=== PATIENT | female | born 1950 | race Caucasian/White ===

== ENCOUNTER → 2017-01-14 | Outpatient (CLI) | payer MEDICARE, BC ==
[~2017-01-14] MED LIST: ARMO60TA PO; THYR15 PO
[2017-01-14 14:00] LABS: AUTOMATED NEUTROPHIL # 3.6 TH/MM3 (1.8-7.7); BASOPHIL % 0.6 % (0.0-2.0); EOSINOPHIL % 0.6 % (0.0-4.0); HEMATOCRIT 40.6 % (35.0-46.0); HEMO FLAGS DIFF FINAL; LYMPH % 32.1 % (9.0-44.0); LYMPHOCYTE # 1.9 TH/MM3 (1.0-4.8); MEAN CELL VOLUME 92.4 FL (80.0-100.0); MEAN CORPUSCULAR HEMOGLOBIN 31.7 PG (27.0-34.0); MEAN CORPUSCULAR HGB CONC 34.3 % (32.0-36.0); MONO % 6.5 % (0.0-8.0); NEUT % 60.2 % (16.0-70.0); PLATELET COUNT 265 TH/MM3 (150-450); RED BLOOD COUNT 4.39 MIL/MM3 (4.00-5.30); RED CELL DISTRIBUTION WIDTH 14.3 % (11.6-17.2); WHITE BLOOD COUNT 5.9 TH/MM3 (4.0-11.0)
[2017-01-14 14:04] LABS: BLOOD, URINE NEG (NEG); COMMENT (UR) CULT NOT INDICATED; CULTURE IF INDICATED CULT NOT INDICATED; GLUCOSE,URINE NEG (NEG); KETONE, URINE NEG (NEG); MUCUS URINE FEW /lpf (OCC); NITRITE,URINE NEG (NEG); PH, URINE 7.5 (5.0-8.5); RENAL EPITHELIAL CELLS <1 /hpf; SQUAMOUS EPITHELIAL CELL URINE <1 /hpf (0-5); TRANSITIONAL EPI CELLS, URINE 1 /hpf; URINE COLOR LIGHT-YELLOW (YELLW/STRAW)
--- NOTE | 2017-01-15 11:48 | EKG ---
Date Performed: 01/14/2017 Time Performed: 13:36:47 PTAGE: 66 years EKG: SINUS BRADYCARDIA BORDERLINE ECG NO PREVIOUS TRACING DOCTOR: Kelby Alvarez Interpretating Date/Time 01/15/2017 11:42:37
== END ==
LOC: CPRE 13:06
PROVIDERS: ATTEND Obstetrics & Gynecology
DX: Z01.810 Encounter for preprocedural cardiovascular examination (principal); Z01.812 Encounter for preprocedural laboratory examination; N83.291 Other ovarian cyst, right side; N83.292 Other ovarian cyst, left side; N81.10 Cystocele, unspecified; N81.6 Rectocele; R00.1 Bradycardia, unspecified
CPT/HCPCS: 36415; 81001; 85025; 93005

== ENCOUNTER 2017-01-16 12:34 | Observation (INO) | payer MEDICARE, BC ==
--- NOTE | 2017-01-15 21:48 | MH ---
cc: GIOVANNI KLEIN DATE OF ADMISSION 01/16/2017 ADMISSION DIAGNOSIS Cystocele, rectocele with right ovarian cyst and left ovarian cyst. HISTORY OF PRESENT ILLNESS The patient is a 66-year-old white female para 1-0-0-1 with history of increasing prolapsed vagina over the last five years with previous diagnosis rectocele. Bowel function and bladder function are normal, but has some pelvic heaviness. Exam on 01/04/2017 revealed a large cystocele, rectocele and fair cervical support. Pelvic ultrasound on 01/08/2017 showed bilateral simple cysts, normal size uterus, endometrium 2 mm. Pap smear was normal. She is now admitted for surgical treatment. PAST MEDICAL HISTORY/PAST SURGICAL HISTORY 1. In 2001 she had a left breast biopsy benign 2. 2002 appendectomy. MEDICATIONS 1. Thyroid 2. Vitamins. ALLERGIES PENICILLIN TRANSFUSIONS None. OBSTETRICAL HISTORY One vaginal delivery. SOCIAL HISTORY Retired, 33 years. Alcohol, tobacco and drugs are none. FAMILY HISTORY Contributory for mother having prolapse as well. PHYSICAL EXAMINATION GENERAL: A well-nourished well-developed white female. VITAL SIGNS: Stable. HEENT: Exam is normal. CHEST: Clear HEART: Regular rate BREASTS: Symmetrical ABDOMEN: Benign. PELVIC: Exam shows a third-degree cystocele, rectocele, cervical support appears good. Normal size, shape. Adnexal nonpalpable. ASSESSMENT As above. PLAN She is now admitted for examination under anesthesia. If the cervical support in good, we will perform LASH BSO and anterior-posterior repair. if cervical support is poor, we will do LAVH BSO, AP repair. While in the office, I explained the procedures, the risks, benefits and complications. The patient would like to proceed. I discussed postop limitation, possible recurrent prolapse. The patient would like to proceed. MD ODALIS Kapadia/ /9:17 PM /9:36 PM
[~2017-01-16] VITALS: Ht 180.3 cm; Wt 64.7 kg
[~2017-01-16 12:34] MED LIST changes: -ARMO60TA PO; +KETOROLAC TROMETHAMINE 60 MG/2 ML (IM) VIAL IM ONE; +NEOSTIGMINE 3 MG/3 ML SYR IV ONE; +NORMOSOL R INJ 1,000 ML IV ONE; +ONDANSETRON HCL 4 MG/2 ML VIAL IV PUSH ONE; +PHENYLEPH/NS 1000 MCG/10 ML SYR IV ONE; +PROPOFOL 200 MG/20 ML AMP IV ONE; +ePHEDrine/NS 25 MG/5 ML SYR IV ONE
[2017-01-16] MEDS ORDERED: ACETAMINOPHEN 1000 MG/100 ML VIAL IV ONE (13:00)
[2017-01-16] MEDS ORDERED: LACTATED RINGER'S 1000 ML IV PRN (13:00)
[2017-01-16] MEDS ORDERED: INSULIN HUMAN REGULAR 1,000 UNITS/10 ML VIAL SQ PRN (13:00)
[2017-01-16] MEDS ORDERED: CHLORHEXIDINE GLUCONATE 2 % 1 PACK (2 CLOTHS) TOPICAL PRN (13:00)
[2017-01-16] MEDS ORDERED: SODIUM CHLORID 0.9% 500 ML IV PRN (13:00)
[2017-01-16] MEDS ORDERED: POVIDONE IODINE 5% (ANTISEPSIS KIT) 4 APPLICATIONS EACH NARE PRN (13:00)
[2017-01-16] MEDS ORDERED: METOPROLOL TARTRATE 25 MG TAB PO PRN (13:00)
[2017-01-16] MEDS ORDERED: CIPROFLOXACIN/DEXT 400 MG/200 ML IV SCH (13:15)
[2017-01-16] MEDS ORDERED: ARMO60TA PO (13:18)
[2017-01-16 13:19] VITALS: BP 146/62; PULSE 69; RESP 20; TEMP 98.1; O2SAT 99
[2017-01-16] MEDS ORDERED: MIDAZOLAM HCL 2 MG/2 ML VIAL ONE (14:34)
[2017-01-16] MEDS ORDERED: FAMOTIDINE 20 MG/2 ML VIAL ONE (14:34)
[2017-01-16] MEDS ORDERED: DEXAMETHASONE SOD PHOS 4 MG/ML VIAL ONE (14:34)
[2017-01-16] MEDS ORDERED: ESTROGENS CONJUGATED VAG CREA 15 APPL/30 GM TUBE VAGINAL ONE (16:06)
[2017-01-16] MEDS ORDERED: HYDROmorphone HCL PF 1 MG/ML VIAL IV PRN (17:15)
[2017-01-16] MEDS ORDERED: ZOLPIDEM TARTRATE 5 MG TAB PO PRN (17:15)
[2017-01-16] MEDS ORDERED: METOCLOPRAMIDE HCL 10 MG/2 ML VIAL IV PUSH PRN (17:15)
[2017-01-16] MEDS ORDERED: ONDANSETRON ODT 4 MG TAB PO PRN (17:15)
[2017-01-16] MEDS ORDERED: ONDANSETRON HCL 4 MG/2 ML VIAL IV PRN (17:15)
[2017-01-16] MEDS ORDERED: PROMETHAZINE HCL 25 MG TAB PO PRN (17:15)
[2017-01-16] MEDS ORDERED: SODIUM CHLORIDE 0.9% FLUSH 10 ML FLUSH IV FLUSH PRN (17:15)
[2017-01-16] MEDS ORDERED: diphenhydrAMINE HCL 25 MG CAP PO PRN (17:15)
[2017-01-16] MEDS ORDERED: fentaNYL CITRATE 250 MCG/5 ML AMP ONE (17:33)
[2017-01-16] MEDS: D5-1/2 NS + KCL 20 MEQ INJ 1,000 ML IV SCH (18:00)
[2017-01-16] MEDS ORDERED: DO NOT ADM ANY ANTICOAGULANT DRUGS PRN (18:00)
[2017-01-16] MEDS ORDERED: ONDANSETRON INJ 8 MG in DEXTROSE 5% IN WATER INJ 50 ML IV PRN ×2 (18:00)
[2017-01-16 18:45] VITALS: BP 134/69; PULSE 70; RESP 20; TEMP 96.1; O2SAT 100
[2017-01-16 19:23] LABS: HEMATOCRIT 38.8 % (35.0-46.0); REVIEW FLAG FINAL
[2017-01-16 20:00] VITALS: BP 130/58; PULSE 89; RESP 18; TEMP 96.6; O2SAT 99
[2017-01-16 20:20] VITALS: O2SAT 98
[2017-01-16] MEDS: SODIUM CHLORIDE 0.9% FLUSH 10 ML FLUSH IV FLUSH SCH (21:00)
[2017-01-16] MEDS: DOCUSATE SODIUM 100 MG CAP PO SCH (21:09)
[2017-01-16] MEDS: ACETAMINOPHEN 1000 MG/100 ML VIAL IV SCH (21:10)
[2017-01-16] MEDS: KETOROLAC TROMETHAMINE 30 MG/ML (IVP) VIAL IVP SCH (23:27)
[2017-01-17] VITALS: BP 108/50; PULSE 84; RESP 17; TEMP 96.8; O2SAT 96
[2017-01-17] MEDS: D5-1/2 NS + KCL 20 MEQ INJ 1,000 ML IV SCH ×2 (02:51→10:00)
[2017-01-17 04:00] VITALS: BP 129/61; PULSE 70; RESP 18; TEMP 97.5; O2SAT 97
[2017-01-17] MEDS: KETOROLAC TROMETHAMINE 30 MG/ML (IVP) VIAL IVP SCH ×2 (05:52→10:47)
[2017-01-17] MEDS: ACETAMINOPHEN 1000 MG/100 ML VIAL IV SCH (05:52)
[2017-01-17] MEDS: DOCUSATE SODIUM 100 MG CAP PO SCH (05:52)
[2017-01-17 07:00] LABS: BASOPHIL % 0.1 % (0.0-2.0); HEMATOCRIT 37.9 % (35.0-46.0); HEMO FLAGS DIFF FINAL; LYMPHOCYTE # 1.6 TH/MM3 (1.0-4.8); MEAN CELL VOLUME 92.9 FL (80.0-100.0); MEAN CORPUSCULAR HEMOGLOBIN 30.4 PG (27.0-34.0); MEAN CORPUSCULAR HGB CONC 32.8 % (32.0-36.0); NEUT % 79.9 % (16.0-70.0); PLATELET COUNT 234 TH/MM3 (150-450); RED BLOOD COUNT 4.08 MIL/MM3 (4.00-5.30); RED CELL DISTRIBUTION WIDTH 14.1 % (11.6-17.2); WHITE BLOOD COUNT 12.5 TH/MM3 (4.0-11.0)
[2017-01-17] MEDS: SODIUM CHLORIDE 0.9% FLUSH 10 ML FLUSH IV FLUSH SCH (07:28)
[2017-01-17 07:32] LABS: BICARBONATE 26.7 MEQ/L (21.0-32.0); POTASSIUM 3.6 MEQ/L (3.5-5.1)
[2017-01-17 08:00] VITALS: BP 116/49; PULSE 64; RESP 16; TEMP 97.4; O2SAT 98
--- NOTE | 2017-01-17 13:26 | MP ---
cc: GIOVANNI KLEIN DATE OF SURGERY 01/16/2017 PREOPERATIVE DIAGNOSIS Cystocele, rectocele, uterine prolapse. POSTOPERATIVE DIAGNOSIS Cystocele, rectocele, uterine prolapse. PROCEDURE Examination under anesthesia followed by laparoscopy, LAVH, BSO, anterior-posterior repair. ANESTHESIA General ET. SURGEON Giovanni Klein MD QA REVIEWER DEBBY Mathias ESTIMATED BLOOD LOSS FOR THE PROCEDURE About 100 cc. FLUIDS 1.3 liters crystalloid. OBJECTIVE FINDINGS Following the induction of adequate general endotracheal anesthesia, the patient was prepped and draped supine on the operating table in dorsal partition in the usual sterile fashion with the bladder being drained via Doherty catheterization. Examination under anesthesia revealed the cervix prolapsing down to the introitus. Attention was directed to the abdomen. After prepping and draping the abdomen was opened through a 0.5-cm infraumbilical incision. A 5-port was placed followed by a second 5 in the left lower quadrant aerosol in the right lower quadrant. The omentum had some adhesions anteriorly which were lysed sharply with a harmonic scalpel. Both ovaries were cystic, about 3-cm benign-appearing. Normal cul-de-sacs, normal liver edge and no signs of any malignancy. Harmonic scalpel was now used take the left ovarian pedicle, left mesosalpinx, left round ligament, left broad ligament, left side of the bladder flap and the uterine vessels and the same on the right. The scope is now removed, the ports left in place and attention directed to the vagina. A heavy weighted speculum was placed at the posterior fornix of the vagina, the cervix grasped with Adi clamp and the posterior cul-de-sac entered sharply with Michele scissors. Palpation was normal. The left uterosacral was clamped with a Emmie, cut and ligated with 0 Vicryl in Emmie fashion. Then the right uterosacral, right and left cardinals in the same fashion. At this point the vaginal cuff was scored anteriorly over the lower cervix with the Bovie and the bladder gently pushed off of the anterior cervix. This allowed delivery of the cervix, uterus, tubes and ovaries through the vault for permanent study. The pedicles were reinforced with 0 Vicryl for good hemostasis. The posterior peritoneum was run to the posterior vagina with a running locking stitch of 0 Vicryl and the peritoneum was closed with a pursestring suture of 0 Vicryl. The vaginal anterior repair was performed by undermining the vaginal mucosa over the cystocele, urethrocele using Allis clamps for traction and Metzenbaum scissors for dissection. When the vaginal mucosa had been well from the underlying perivesical and periurethral fascia, the UV junction was plicated with 2-0 Vicryl stitches in Clarita fashion. Additional sutures were placed proximally to elevate the urethrocele and distally to elevate the cystocele. A second layer was placed at the UV junction. Next, the vaginal mucosa was trimmed and the anterior vaginal wall closed with 2-0 Vicryl stitches in [id number] fashion. Each corner of the vaginal vault was then suspended to the uterosacral with interrupted sutures of 0 Vicryl and the vault closed front to back with 0 Vicryl interrupted sutures. The perineal scar tissue was now excised with a knife and the vaginal mucosa undermined over the rectocele and the vaginal mucosa from the underlying perirectal fascia. The perirectal fascia was now closed with a running stitch of 2-0 Vicryl. Excess posterior vaginal mucosa was trimmed and the posterior vaginal wall closed with a running locking stitch of 2-0 Vicryl. The introitus was approximated with 2-0 Vicryl interrupted and 2-0 running. Inspection revealed no bleeding. The vagina was packed with 2-inch gauze moistened with Premarin cream. Rectal exam was normal. The scope was now reinserted, changing gloves. This inspection revealed good hemostasis, no bleeding and bilateral ureteral peristalsis. The scope was now removed, the gas allowed to escape. The ports were removed and sutured with 3-0 Monocryl. The patient's legs were taken down from the stirrups and she was awakened and taken to the recovery room in good position. MD ODALIS Kapadia/DONOVAN /5:09 PM /1:02 PM
== END 2017-01-17 13:54 | disposition home or self-care (01) ==
LOC: HSDC 12:34 → EDUNIT# 14:45 → HOCB 19:00
PROVIDERS: ADMIT Obstetrics & Gynecology; ATTEND Obstetrics & Gynecology
DX: N81.4 Uterovaginal prolapse, unspecified (principal); D25.1 Intramural leiomyoma of uterus; D27.0 Benign neoplasm of right ovary; N83.02 Follicular cyst of left ovary; K66.0 Peritoneal adhesions (postprocedural) (postinfection); K21.9 Gastro-esophageal reflux disease without esophagitis; J45.909 Unspecified asthma, uncomplicated; E04.1 Nontoxic single thyroid nodule
CPT/HCPCS: 00840; 57260; 58571; 80048; 85014; 85018; 85025; 88302; 88307; 94150; G0378; J0131; J0744; J1100; J1885; J2250; J2370; J2710; J3010; J3480; J7120; J2405